=== PATIENT | female | born 2000 | race Caucasian/White ===

== ENCOUNTER → 2021-01-26 | Outpatient (CLI) | payer OTHER ==
--- NOTE | 2021-01-26 14:04 | KCIC ---
XR CHEST 2V CLINICAL INDICATIONS: Left anterior chest wall pain COMPARISON: None available. Findings: Ill-defined infiltrate is seen within the lingula. No pleural effusion or pneumothorax is s een. The heart size, pulmonary vasculature, mediastinum and both sridhar are unremarkable. The osseous s tructures appear intact. IMPRESSION: Lingular infiltrate. Electronically signed by: Dario Massey MD (01/26/2021 2:02 PM) [id number]
== END ==
LOC: KCIC 11:43
PROVIDERS: ATTEND Family Medicine
DX: R91.8 Other nonspecific abnormal finding of lung field (principal); R07.89 Other chest pain
CPT/HCPCS: 71046

== ENCOUNTER → 2021-02-09 | Outpatient (CLI) | payer OTHER ==
--- NOTE | 2021-02-09 15:16 | KCIC ---
EXAM: Chest, 2 views. HISTORY: Chest wall pain. COMPARISON: 01/26/2021 FINDINGS: 2 views of the chest are obtained. There is no infiltrate, pleural effusion or pneumothorax . The heart is normal in size. IMPRESSION: No acute pulmonary finding. Electronically signed by: Brisas Lua MD (02/09/2021 3:13 PM) [id number]
== END ==
LOC: KCIC 13:19
PROVIDERS: ATTEND Family Medicine
DX: R07.89 Other chest pain (principal)
CPT/HCPCS: 71046